=== PATIENT | female | born 1960 | race Caucasian/White ===

== ENCOUNTER 2018-02-18 16:52 | Emergency (ER) | payer OTHER ==
[~2018-02-18] VITALS: Ht 152.4 cm; Wt 53.1 kg
[2018-02-18] MEDS ORDERED: SYNTHROID125 MC1 PO (17:05)
[2018-02-18 17:18] LABS: URINE BILIRUBIN NEGATIVE (Negative); URINE BLOOD 3+ (Negative); URINE CLARITY CLEAR; URINE COLOR YELLOW; URINE GLUCOSE-RANDOM NEGATIVE (Negative); URINE KETONES NEGATIVE (Negative); URINE LEUKOCYTES-REFLEX 3+ (Negative); URINE NITRITE-REFLEX NEGATIVE (Negative); URINE PROTEIN TRACE (Negative); URINE SPECIFIC GRAVITY 1.015 (1.005-1.030); URINE UROBILINOGEN 0.2 E.U./dl (0.2-1.0)
[2018-02-18 17:21] LABS: SQUAMOUS 0-3 Few /LPF (0-3); WBC CLUMPS Few (None Seen)
[2018-02-18 17:22] LABS: BACTERIA-REFLEX 1-9 Few /HPF (None Seen); CASTS None Seen /LPF (None Seen); CRYSTALS None Seen /LPF (None Seen); MUCUS None Seen strn/LPF (None Seen); URINE RBC >20 Many /HPF (0-2)
[2018-02-18] MEDS ORDERED: PYRIDIUM100 M1 PO (17:25)
[2018-02-18] MEDS ORDERED: BACTRIM DS TAB1 EACH PO (17:25)
[2018-02-18] MEDS ORDERED: HYDROCODONE-AP1 EAC6 PO (17:35)
[2018-02-18] MEDS ORDERED: PHENERGAN 25 MG25 M1 PO (17:35)
[2018-02-18 17:50] VITALS: BP 133/79
== END 2018-02-18 17:51 | disposition home or self-care (01) ==
LOC: M.ERS 16:52
PROVIDERS: Physician Assistant
DX: N39.0 Urinary tract infection, site not specified (principal); E89.0 Postprocedural hypothyroidism; Z90.49 Acquired absence of other specified parts of digestive tract

== ENCOUNTER 2019-01-08 16:00 | Observation (INO) | payer OTHER ==
[~2019-01-08] VITALS: Ht 152.4 cm; Wt 57.8 kg
[~2019-01-08 16:00] MED LIST: BACTRIM DS TAB1 EACH PO; CIPROFLOXACIN500 M1 PO; HYDROCODONE-AP1 EAC6 PO; NORCO 7.5-3251 EACH PO; PHENERGAN 25 MG25 M1 PO; PYRIDIUM100 M1 PO; SYNTHROID125 MC1 PO; ZOFRAN ODT4 MG PO
[2019-01-08 16:10] VITALS: BP 198/97
[2019-01-08 16:52] LABS: ABSOLUTE EOSINOPHILS 0.2 thou/uL (0.0-0.7); ABSOLUTE LYMPHOCYTES 2.5 thou/uL (0.8-5.3); ABSOLUTE MONOCYTES 0.4 thou/uL (0.0-1.2); ABSOLUTE NEUTROPHILS 3.1 thou/uL (1.6-8.1); BASOPHILS 0.3 %; EOSINOPHILS 2.9 %; HEMOGLOBIN 15.2 gm/dL (12.0-15.0); LYMPHOCYTES 39.7 %; MCH 32.1 pg (26.0-34.0); MCHC 34.4 g/dL (28.0-37.0); MCV 93.3 fL (80.0-100.0); MONOCYTES 7.2 %; MPV 7.8 fl. (7.2-11.1); NUCLEATED RBCS 0 /100WBC; PLATELET COUNT* 272 thou/uL (150-400); POLYS 49.9 %; RBC 4.72 mil/uL (4.20-5.00); RDW-CV 12.8 % (10.5-14.5); WBC 6.2 thou/uL (4.0-11.0)
[2019-01-08 17:00] LABS: ANION GAP 6 mmol/L (7-16); BUN 13 mg/dL (7-18); CALCIUM 9.7 mg/dL (8.5-10.1); CHLORIDE 103 mmol/L (98-107); CO2 31 mmol/L (21-32); CREATININE 0.8 mg/dL (0.6-1.3); GLUCOSE 86 mg/dL (70-99); POTASSIUM 3.7 mmol/L (3.5-5.1); SODIUM 140 mmol/L (136-145)
[2019-01-08 17:09] LABS: ALBUMIN 3.8 g/dL (3.4-5.0); ALKALINE PHOSPHATASE 55 U/L (46-116); SGOT 20 U/L (15-37); SGPT 24 U/L (30-65); TOTAL BILIRUBIN 0.3 mg/dL (<0.1-1.0); TOTAL PROTEIN 7.1 g/dL (6.4-8.2); TROPONIN-I LEVEL <0.06 ng/mL (<0.06)
[2019-01-08 17:09] LABS: URINE BILIRUBIN NEGATIVE (Negative); URINE BLOOD NEGATIVE (Negative); URINE CLARITY CLEAR; URINE COLOR YELLOW; URINE GLUCOSE-RANDOM NEGATIVE (Negative); URINE KETONES NEGATIVE (Negative); URINE LEUKOCYTES-REFLEX NEGATIVE (Negative); URINE NITRITE-REFLEX NEGATIVE (Negative); URINE PROTEIN NEGATIVE (Negative); URINE SPECIFIC GRAVITY <= 1.005 (1.005-1.030); URINE UROBILINOGEN 0.2 E.U./dl (0.2-1.0)
[2019-01-08 18:39] VITALS: BP 113/64
[2019-01-08 18:40] VITALS: BP 102/75
[2019-01-08 18:57] LABS: INFLUENZA A ANTIGEN None Detected (None Detect); INFLUENZA B ANTIGEN None Detected (None Detect)
[2019-01-08 20:00] VITALS: BP 91/48
[2019-01-09] VITALS: BP 97/49
[2019-01-09 04:00] VITALS: BP 96/53
[2019-01-09 07:30] VITALS: BP 113/66
[2019-01-09] MEDS ORDERED: CLONIDINE0.1 PO (09:59)
[2019-01-09 10:47] VITALS: BP 113/66
--- NOTE | 2019-01-09 18:21 | EKG ---
[place] [address] ELECTROCARDIOGRAM REPORT Name: MARIA ISABEL MCKEON Room: [address]#: [id number] Admission: 01/08/19 Attend Phys: Mary Rossi Discharge: 01/09/19 Date of : 64 Report #: [id number] THIS REPORT FOR: //name// [facility] Test Date: 2019-01-08 Test Time: 16:32:59 Pat Name: MARIA ISABEL MCKEON Department: Room: [facility] Gender: F Lap Layer: : 1960 Requested By: Jessica Cash Order Number: [id number] : Kirby Zavala Measurements Intervals [place] Rate: 59 P: 42 PA: 128 QRS: 29 QRSD: 80 T: 26 QT: 416 QTc: 413 Interpretive Statements Sinus rhythm No previous ECG available for comparison Electronically Signed On 01-09-2019 18:20:47 STRIPPING MACHINE OPERATOR by Kirby Zavala [email or web address] <ELECTRONICALLY SIGNED> By: Kirby Zavala MD, [facility] 01/09/19 1820 163 163 Kirby Zavala MD, FACC /EPI
== END 2019-01-09 11:00 | disposition home or self-care (01) ==
LOC: M.ERS 16:00 → M.2W 17:22 → M.TBA-ER 17:22 → M.2W 17:22
PROVIDERS: Nurse Practitioner Family; ADMIT Internal Medicine
DX: I16.0 Hypertensive urgency (principal); R51 Headache; N20.0 Calculus of kidney; E03.9 Hypothyroidism, unspecified; I10 Essential (primary) hypertension; N39.0 Urinary tract infection, site not specified; H53.8 Other visual disturbances; Z79.899 Other long term (current) drug therapy

== ENCOUNTER 2020-01-20 16:10 | Emergency (ER) | payer OTHER ==
[~2020-01-20] VITALS: Ht 152.4 cm; Wt 58.1 kg
[~2020-01-20 16:10] MED LIST changes: +CLONIDINE0.1 PO
[2020-01-20 16:40] LABS: ABSOLUTE BASOPHILS 0.1 thou/uL (0.0-0.2); ABSOLUTE MONOCYTES 1.1 thou/uL (0.0-1.2); ABSOLUTE NEUTROPHILS 9.9 thou/uL (1.6-8.1); BASOPHILS 0.6 %; EOSINOPHILS 0.3 %; HEMATOCRIT 39.1 % (37.0-47.0); HEMOGLOBIN 13.7 gm/dL (12.0-15.0); LYMPHOCYTES 21.4 %; MCH 31.4 pg (26.0-34.0); MCHC 35.1 g/dL (28.0-37.0); MCV 89.3 fL (80.0-100.0); MONOCYTES 7.8 %; MPV 8.4 fl. (7.2-11.1); NUCLEATED RBCS 0 /100WBC; PLATELET COUNT* 324 thou/uL (150-400); POLYS 69.9 %; RBC 4.37 mil/uL (4.20-5.00); RDW-CV 13.2 % (10.5-14.5); WBC 14.2 thou/uL (4.0-11.0)
[2020-01-20 16:44] LABS: CALCIUM 8.7 mg/dL (8.5-10.1); CREATININE 0.7 mg/dL (0.6-1.3); POTASSIUM 3.5 mmol/L (3.5-5.1)
[2020-01-20 16:49] LABS: ALBUMIN 3.6 g/dL (3.4-5.0); APTT 24.8 Seconds (25.0-31.3); PROTIME 10.2 Seconds (9.20-11.50); TOTAL BILIRUBIN 0.2 mg/dL (<0.1-1.0); TOTAL PROTEIN 7.1 g/dL (6.4-8.2)
[2020-01-20] MEDS ORDERED: ZOFRAN ODT4 MG SUBLING (17:20)
[2020-01-20] MEDS ORDERED: NORCO 5-325 TA1 EAC1 PO (17:20)
[2020-01-20 17:25] VITALS: BP 151/92
--- NOTE | 2020-01-21 10:29 | EKG ---
[place] [address] ELECTROCARDIOGRAM REPORT Name: MIKEMARIA ISABEL Michael Room: [facility]#: [id number] Admission: 01/20/20 Attend Phys: Discharge: 01/20/20 Date of : 64 Date of Service: 01/20/201702 Report #: [id number] THIS REPORT FOR: //name// [facility] ED Test Date: 2020-01-20 Test Time: 17:03:09 Pat Name: MARIA ISABEL MCKEON Department: Room: Gender: F Sound Controller: [facility] : 1960 Requested By: Oli Yuan Order Number: [id number] MD: Abhishek Chung Measurements Intervals [place] Rate: 57 P: 43 MO: 130 QRS: 30 QRSD: 92 T: 3 QT: 410 QTc: 400 Interpretive Statements Sinus rhythm Compared to ECG 01/08/2019 16:32:59 No significant changes Electronically Signed On 01-21-2020 10:28:17 ASPHALT PAVING MACHINE OPERATOR by Abhishek Chung [email or web address] <ELECTRONICALLY SIGNED> By: Abhishek Chung MD, [facility] 01/21/20 1028 02 02 Abhishek Chung MD, FAC /EPI
== END 2020-01-20 17:26 | disposition home or self-care (01) ==
LOC: M.ERS 16:10
PROVIDERS: Family Medicine
DX: R51 Headache (principal); T38.0X5A Adverse effect of glucocorticoids and synthetic analogues, initial encounter; Z90.49 Acquired absence of other specified parts of digestive tract; Z98.890 Other specified postprocedural states; Z87.442 Personal history of urinary calculi; Y92.89 Other specified places as the place of occurrence of the external cause

== ENCOUNTER 2020-02-11 18:00 | Emergency (ER) | payer OTHER ==
[~2020-02-11] VITALS: Ht 152.4 cm; Wt 56.7 kg
[~2020-02-11 18:00] MED LIST changes: +NORCO 5-325 TA1 EAC1 PO; +ZOFRAN ODT4 MG SUBLING
[2020-02-11 18:39] LABS: INFLUENZA A ANTIGEN Negative (Negative); INFLUENZA B ANTIGEN Negative (Negative)
[2020-02-11 18:42] VITALS: BP 169/103
== END 2020-02-11 18:43 | disposition left against medical advice (07) ==
LOC: M.ERS 18:00
PROVIDERS: Family Medicine
DX: B34.9 Viral infection, unspecified (principal); E89.0 Postprocedural hypothyroidism; Z90.49 Acquired absence of other specified parts of digestive tract; Z98.890 Other specified postprocedural states; Z87.442 Personal history of urinary calculi

== ENCOUNTER 2021-03-02 17:34 | Emergency (ER) | payer OTHER ==
[~2021-03-02] VITALS: Ht 152.4 cm; Wt 58.1 kg
[2021-03-02] MEDS ORDERED: LISINOPRIL10 MG PO (17:48)
[2021-03-02] MEDS ORDERED: HYDROCODON-ACE1 EAC7 PO (18:05)
[2021-03-02 18:30] VITALS: BP 140/81
== END 2021-03-02 18:31 | disposition home or self-care (01) ==
LOC: M.ERS 17:34
DX: S89.301A Unspecified physeal fracture of lower end of right fibula, initial encounter for closed fracture (principal); S82.64XA Nondisplaced fracture of lateral malleolus of right fibula, initial encounter for closed fracture; I10 Essential (primary) hypertension; Z87.442 Personal history of urinary calculi; Z98.890 Other specified postprocedural states; Z90.89 Acquired absence of other organs; Z79.899 Other long term (current) drug therapy; W01.198A Fall on same level from slipping, tripping and stumbling with subsequent striking against other object, initial encounter; Y93.K1 Activity, walking an animal; Y92.89 Other specified places as the place of occurrence of the external cause; Y99.8 Other external cause status